=== PATIENT | male | born 1990 | race Caucasian/White ===

== ENCOUNTER 2024-02-09 18:21 | Emergency (ER) | payer OTHER ==
[~2024-02-09] VITALS: Ht 170.2 cm; Wt 74.8 kg
[2024-02-09] MEDS: IBUPROFEN 800 MG TAB PO ONE (21:28)
[2024-02-09] MEDS ORDERED: PRED20TA PO (22:34)
[2024-02-09] MEDS ORDERED: NAPR-837 PO (22:34)
[2024-02-09] MEDS: NAPROXEN 250 MG TAB PO ONE (22:35)
[2024-02-09] MEDS: predniSONE 20 MG TAB PO ONE (22:36)
[2024-02-09 22:37] VITALS: BP 146/77; TEMP 97.8; O2SAT 99
== END 2024-02-09 22:40 | disposition home or self-care (01) ==
LOC: M ED 18:21
DX: M10.071 Idiopathic gout, right ankle and foot (principal); M25.571 Pain in right ankle and joints of right foot; Z90.89 Acquired absence of other organs; Z79.52 Long term (current) use of systemic steroids; Z79.1 Long term (current) use of non-steroidal anti-inflammatories (NSAID)
CPT/HCPCS: 73610; 99283; J7512